=== PATIENT | female | born 2000 | race African-American/Black ===

== ENCOUNTER 2025-06-25 18:42 | Emergency (ER) | payer MEDICAID ==
[~2025-06-25] VITALS: Ht 180.3 cm; Wt 83.0 kg
[2025-06-25 18:45] VITALS: BP 129/74; TEMP 37.1; O2SAT 99
[2025-06-25 18:49] VITALS: PULSE 85; RESP 18; O2SAT 96
== END 2025-06-25 20:35 | disposition left against medical advice (07) ==
LOC: ER 18:42
DX: R06.02 Shortness of breath (principal); Z53.21 Procedure and treatment not carried out due to patient leaving prior to being seen by health care provider
CPT/HCPCS: 71045; 93005